=== PATIENT | female | born 1995 | race Caucasian/White ===

== ENCOUNTER 2016-12-04 20:47 | Emergency (ER) | payer OTHER ==
[2016-12-04 22:56] LABS: MEAN CORPUSCULAR HEMOGLOBIN 29.8 pg (27.0-33.0); RED CELL DISTRIBUTION WIDTH 12.3 % (11.5-14.5); WHITE BLOOD COUNT 12.5 K/mm3 (4.0-10.0)
--- NOTE | 2016-12-05 01:10 | EDDOCDS ---
Physician Documentation [facility] Name: Mamie Ken Age: 21 yrs Sex: Female : 1995 Arrival Date: 12/04/2016 Time: 20:47 Bed TR8 Private MD: MOCamryn MARIN Disposition: 12/05/16 00:09 Discharged to Home/Self Care. Impression: Abnormal uterine and vaginal bleeding, unspecified - early . - Condition is Stable. - Discharge Instructions: Threatened Miscarriage. - Medication Reconciliation form. - Follow up: Emergency Department; When: As needed. Follow up: Melissa Fernando MD; When: 1 week; Reason: Wound/Symptom Recheck, Recheck today's complaints, Worsening of conditions, Continuance of care. - Problem is new. - Symptoms are resolved. Historical: - Allergies: Peanut (Anaphylaxis); - Home Meds: 1. none - PSHx: none; - Social history: Smoking status: Patient states was never smoker of tobacco. No barriers to communication noted, The patient speaks fluent Ethiopian. - Family history: Not pertinent. - : The pt / caregiver states he / she is not on anticoagulants. Home medication list is obtained from the patient. - Exposure Risk Screening:: None identified. 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 9 in. (175.26 cm); Pain 2/10; 12/05 00:23 BP 114 / 68; Pulse 77; Resp 16; Temp 98.5(T); Pulse Ox 99% on R/A; cz 12/04 20:48 Body Mass Index 18.46 (56.70 kg, 175.26 cm) sew MDM: 12/04 22:35 Undress patient appropriately for examination ordered. cc10 22:36 Complete Blood Count Ordered. EDMS 22:36 Hcg, Serum Quantitative Ordered. EDMS 22:36 Type & Screen Ordered. EDMS 22:36 US 1st trimester Ordered. EDMS 23:59 Complete Blood Count Reviewed. cc10 23:59 Hcg, Serum Quantitative Reviewed. cc10 23:59 Type & Screen Reviewed. cc10 12/05 00:04 Financial registration complete. [facility] Signatures: Dispatcher [employer] Sonia Johnson, RN RN Quincy Garcia RN RN Alexander Paiz PA-C JUDITH Samia Key [facility] The chart was reviewed and I authenticate all verbal orders and agree with the evaluation and treatment provided.Corrections: (The following items were deleted from the chart) 00:11 12/04 22:36 URINALYSIS+LAB ordered. EDMS EDMS 12/05 00:11 12/04 22:36 URINE CULTURE+CORY ordered. EDUT EDMS MTDD
--- NOTE | 2016-12-05 01:10 | EDDOCDS ---
Nurse's Notes [facility] Name: Mamie Ken Age: 21 yrs Sex: Female : 1995 Arrival Date: 12/04/2016 Time: 20:47 Bed TR8 Private [facility] Diagnosis: Abnormal uterine and vaginal bleeding, unspecified-early Presentation: 12/04 20:54 Presenting complaint: Patient states: 6 weeks and started spotting 2 days ago, mcp today started with heavy bleeding, pain on right side. Risk factors: The patient reports no loss of conciousness prior to arrival. This patient has not had a hysterectomy. This patient has not begun menopause. Adult Sepsis Screening: The patient does not have new or worsening altered mentation. Patient's respiratory rate is less than 22. Systolic blood pressure is greater than 100. Patient has a qSOFA score of 0- Negative Sepsis Screen. Suicide/Homicide risk assessment- the patient denies having any suicidal and/or homicidal ideations and does not present with any other emotional, behavioral or mental health complaints. 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 Transition of care: patient was not received from another setting of care. 20:54 Acuity: WARREN Level 3 [facility] 20:54 Method Of Arrival: Walkin/Carried/Asstd [facility] Triage Assessment: 20:57 General: Appears in no apparent distress, Behavior is cooperative. Pain: Location: mcp right lower quadrant Pain currently is 2 out of 10 on a pain scale. HIV screening NA for this visit Offered previously. Neurological: No deficits noted. Respiratory: Airway is patent Respiratory effort is even, unlabored. : Reports vaginal bleeding that is heavy flow. Derm: Skin is pink, warm & dry. 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 none - PSHx: none; - Social history: Smoking status: Patient states was never smoker of tobacco. No barriers to communication noted, The patient speaks fluent Setswana. - Family history: Not pertinent. - : The pt / caregiver states he / she is not on anticoagulants. Home medication list is obtained from the patient. - Exposure Risk Screening:: None identified. Screenin/07 01:08 Screening information is obtained from the patient. Fall risk: No risks identified. cz Assistance ADL's: requires no assistance with activities of daily living. Abuse/DV Screen: The patient / caregiver reports he/she is: not in a situation that causes fear, pain or injury. Nutritional screening: No deficits noted. home support is adequate. Assessment: 01:08 Reassessment: Patient appears in no apparent distress at this time. Patient states cz symptoms have improved. Vital Signs: 12/04 20:48 BP 147 / 77; Pulse 97; Resp 16; Temp 98.5(O); Pulse Ox 100% on R/A; Weight 56.7 kg; sew Height 5 ft. 9 in. (175.26 cm); Pain 01/08; 12/05 00:23 BP 114 / 68; Pulse 77; Resp 16; Temp 98.5(T); Pulse Ox 99% on R/A; cz 12/04 20:48 Body Mass Index 18.46 (56.70 kg, 175.26 cm) [facility] [place]: 12/04 20:48 Log In Time: December 04, 2016 at 20:48. [facility] [place] Course: 20:48 Patient visited by Penny Lopez. sew 20:48 [facility] Phys[facility]. sew 20:48 Patient moved to Waiting sew 20:49 Patient visited by Penny Lopez. sew 20:49 Patient moved to Pre RCE sew 20:55 Triage Initiated mcp 20:57 Patient visited by Sonia Humphrey RN. [facility] 22:26 Alexander Loomis PA-C [facility]. cc10 22:26 Stanley Mendoza DO is Attending Physician. cc10 22:26 Patient moved to Triage 2 jb5 22:31 Patient visited by Alexander Loomis PA-C. cc10 22:31 Patient visited by Alexander Loomis PA-C. cc10 22:49 Patient moved to TR2 jb5 22:49 Complete Blood Count Sent. jb5 22:49 Hcg, Serum Quantitative Sent. jb5 22:49 Type & Screen Sent. jb5 12/05 00:06 Patient moved to PR2 / 26 mcp 00:08 Melissa Fernando MD is Referral Physician. cc10 00:23 Patient moved to TR8 cz 01:08 The patient / caregiver is instructed regarding the plan of care and ED course. cz 01:08 No IV's were initiated during this patient's visit. No procedures done that require cz assistance. Order Results: Lab Order: Complete Blood Count; [facility] 12/04/16 22:44 Test: WHITE BLOOD COUNT; Value: 12.5; Range: 4.0-10.0; Abnormal: Above high normal; Units: K/mm3; Status: F Test: RED BLOOD COUNT; Value: 4.38; Range: 4.00-5.40; Units: M/mm3; Status: F Test: HEMOGLOBIN; Value: 13.0; Range: 12.0-16.0; Units: g/dl; Status: F Test: HEMATOCRIT; Value: 37.2; Range: 36.0-47.0; Units: %; Status: F Test: MEAN CORPUSCULAR VOLUME; Value: 85.0; Range: 80.0-96.0; Units: fl; Status: F Test: MEAN CORPUSCULAR HEMOGLOBIN; Value: 29.8; Range: 27.0-33.0; Units: pg; Status: F Test: MEAN CORPUSCULAR HGB CONC; Value: 35.0; Range: 32.0-36.5; Units: g/dl; Status: F Test: RED CELL DISTRIBUTION WIDTH; Value: 12.3; Range: 11.5-14.5; Units: %; Status: F Test: PLATELET COUNT, AUTOMATED; Value: 166; Range: 150-450; Units: k/mm3; Status: F Lab Order: Hcg, Serum Quantitative; [facility] 12/04/16 22:44 Test: HCG, SERUM QUANTITATIVE; Value: [id number]; Units: MIU/ML; Status: F Test Note: ; GESTATIONAL AGE APPROXIMATE HCG RANGE (MIU/ML) 0.2-1 WEEK 5-50 1-2 WEEKS 50-500 2-3 WEEKS 100-5,000 3-4 WEEKS 500-10,000 4-5 WEEKS 1,000-50,000 5-6 WEEKS 10,000-100,000 6-8 WEEKS 15,000-200,000 2-3 MONTHS 10,000-100,000 NON FEMALES LESS THAN 3.0 Patient samples may contain human heterophilic antibodies that could react with immunoassays to give falsely elevated or depressed results. This assay has been designed to minimize interference from heterophilic antibodies. Elevated hCG levels have also been associated with trophoblastic disease and nontrophoblastic neoplasms. The possibility of having these diseases should be considered before a diagnosis of is made. This test is not intended for use as a surrogate marker for aiding in the diagnosis or monitoring the treatment of cancer patients. [employer] methodology. Lab Order: Type & Screen; SPEC'M 12/04/16 22:44 Test: BLOOD TYPE; Value: O POS; Status: F Test: AB SCREEN (INDIRECT DEBORAH)GEL; Value: NEGATIVE; Status: F Outcome: 00:09 Discharge ordered by Provider. cc10 01:08 Discharge Assessment: Patient awake, alert and oriented x 3. No cognitive and/or cz functional deficits noted. Patient verbalized understanding of disposition instructions. patient administered narcotics - no. The following High Risk Discharge criteria are identified: None. Discharged to home ambulatory, with significant other. Condition: stable. Discharge instructions given to patient, Instructed on discharge instructions, follow up and referral plans. Demonstrated understanding of instructions, Pt was receptive of discharge instructions/ teaching. Ultrasound Study completed. Property :Personal belongings accompany Pt. 01:09 Patient left the ED. cz Signatures: Sonia Hupmhrey, RN Quincy Cain mcp, RN RN cz Baker, Janet, SARAHI CARAMEL CANDY MAKER jorge [email or web address] Penny Lopez Colin, PA-C PA-C cc10 [email or web address]
--- NOTE | 2016-12-05 01:20 | REPUSA ---
CLINICAL HISTORY: Bleeding TECHNIQUE: Transabdominal ultrasound of the pelvis was performed. FINDINGS: A pole is identified with crown-rump length of 0.3 cm, which corresponds to a gestational age o f 6 weeks and 0 days. A yolk sac is noted. heart motion is demonstrated, with a rate of 86 beats per minute. VALENCIA is estimated at 07/30/17 Right ovarian corpus luteum cyst is seen. The ovaries are otherwise unremarkable. There is no adnexal mass or pelvic fluid collection. IMPRESSION: Single live IUP dated at 6 weeks 0 days.
--- NOTE | 2016-12-08 10:21 | EDDOCDS ---
Physician Documentation [facility] Name: Mamie Ken Age: 21 yrs Sex: Female : 1995 Arrival Date: 12/04/2016 Time: 20:47 Bed TR8 Private MD: DCCamryn MARIN Disposition: 12/05/16 00:09 Discharged to Home/Self Care. Impression: Abnormal uterine and vaginal bleeding, unspecified - early . - Condition is Stable. - Discharge Instructions: Threatened Miscarriage. - Medication Reconciliation form. - Follow up: Emergency Department; When: As needed. Follow up: Melissa Fernando MD; When: 1 week; Reason: Wound/Symptom Recheck, Recheck today's complaints, Worsening of conditions, Continuance of care. - Problem is new. - Symptoms are resolved. Historical: - Allergies: Peanut (Anaphylaxis); - Home Meds: 1. none - PSHx: none; - Social history: Smoking status: Patient states was never smoker of tobacco. No barriers to communication noted, The patient speaks fluent Filipino. - Family history: Not pertinent. - : The pt / caregiver states he / she is not on anticoagulants. Home medication list is obtained from the patient. - Exposure Risk Screening:: None identified. 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 9 in. (175.26 cm); Pain 2/10; 12/05 00:23 BP 114 / 68; Pulse 77; Resp 16; Temp 98.5(T); Pulse Ox 99% on R/A; cz 12/04 20:48 Body Mass Index 18.46 (56.70 kg, 175.26 cm) sew MDM: 12/04 22:35 Undress patient appropriately for examination ordered. cc10 22:36 Complete Blood Count Ordered. EDMS 22:36 Hcg, Serum Quantitative Ordered. EDMS 22:36 Type & Screen Ordered. EDMS 22:36 US 1st trimester Ordered. EDMS 23:59 Complete Blood Count Reviewed. cc10 23:59 Hcg, Serum Quantitative Reviewed. cc10 23:59 Type & Screen Reviewed. cc10 12/05 00:04 Financial registration complete. [facility] 02:55 [facility] Payment Agreement was scanned into [employer] and attached to record. [facility] 08: T-Sheet-- Draft Copy was scanned into [employer] and attached to record. [facility] Signatures: Dispatcher [employer] EDMI Sonia Humphrey RN RN mcp Zecher, Calvin, RN RN cz Coniski, Colin, PA-C PA-C Samia Mcmillan [facility] Penny Linn [facility] The chart was reviewed and I authenticate all verbal orders and agree with the evaluation and treatment provided.Corrections: (The following items were deleted from the chart) 00:11 12/04 22:36 URINALYSIS+LAB ordered. EDMS EDMS 12/05 00:11 12/04 22:36 URINE CULTURE+CORY ordered. EDMI EDMS Attachments: 12/05 02:55 [facility] Payment Agreement [facility] 08: T-Sheet-- Draft Copy [facility] Chart Complete MTDD
--- NOTE | 2016-12-08 10:21 | EDDOCDS ---
Nurse's Notes [facility] Name: Mamie Ken Age: 21 yrs Sex: Female : 1995 Arrival Date: 12/04/2016 Time: 20:47 Bed TR8 Private [facility] Diagnosis: Abnormal uterine and vaginal bleeding, unspecified-early Presentation: 12/04 20:54 Presenting complaint: Patient states: 6 weeks and started spotting 2 days ago, mcp today started with heavy bleeding, pain on right side. Risk factors: The patient reports no loss of conciousness prior to arrival. This patient has not had a hysterectomy. This patient has not begun menopause. Adult Sepsis Screening: The patient does not have new or worsening altered mentation. Patient's respiratory rate is less than 22. Systolic blood pressure is greater than 100. Patient has a qSOFA score of 0- Negative Sepsis Screen. Suicide/Homicide risk assessment- the patient denies having any suicidal and/or homicidal ideations and does not present with any other emotional, behavioral or mental health complaints. 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 Transition of care: patient was not received from another setting of care. 20:54 Acuity: WARREN Level 3 [facility] 20:54 Method Of Arrival: Walkin/Carried/Asstd [facility] Triage Assessment: 20:57 General: Appears in no apparent distress, Behavior is cooperative. Pain: Location: mcp right lower quadrant Pain currently is 2 out of 10 on a pain scale. HIV screening NA for this visit Offered previously. Neurological: No deficits noted. Respiratory: Airway is patent Respiratory effort is even, unlabored. : Reports vaginal bleeding that is heavy flow. Derm: Skin is pink, warm & dry. 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 none - PSHx: none; - Social history: Smoking status: Patient states was never smoker of tobacco. No barriers to communication noted, The patient speaks fluent Estonian. - Family history: Not pertinent. - : The pt / caregiver states he / she is not on anticoagulants. Home medication list is obtained from the patient. - Exposure Risk Screening:: None identified. Screenin/07 01:08 Screening information is obtained from the patient. Fall risk: No risks identified. cz Assistance ADL's: requires no assistance with activities of daily living. Abuse/DV Screen: The patient / caregiver reports he/she is: not in a situation that causes fear, pain or injury. Nutritional screening: No deficits noted. home support is adequate. Assessment: 01:08 Reassessment: Patient appears in no apparent distress at this time. Patient states cz symptoms have improved. Vital Signs: 12/04 20:48 BP 147 / 77; Pulse 97; Resp 16; Temp 98.5(O); Pulse Ox 100% on R/A; Weight 56.7 kg; sew Height 5 ft. 9 in. (175.26 cm); Pain 01/08; 12/05 00:23 BP 114 / 68; Pulse 77; Resp 16; Temp 98.5(T); Pulse Ox 99% on R/A; cz 12/04 20:48 Body Mass Index 18.46 (56.70 kg, 175.26 cm) [facility] [place]als: 12/04 20:48 Log In Time: December 04, 2016 at 20:48. [facility] [place] ED Course: 20:48 Patient visited by Penny Lopez. sew 20:48 [facility]. sew 20:48 Patient moved to Waiting sew 20:49 Patient visited by Penny Lopez. sew 20:49 Patient moved to Pre RCE sew 20:55 Triage Initiated mcp 20:57 Patient visited by Sonia Humphrey RN. [facility] 22:26 Alexander Loomis PA-C [facility]. cc10 22:26 Stanley Mendoza DO is Attending Physician. cc10 22:26 Patient moved to Triage 2 jb5 22:31 Patient visited by Alexander Loomis PA-C. cc10 22:31 Patient visited by Alexander Loomis PA-C. cc10 22:49 Patient moved to TR2 jb5 22:49 Complete Blood Count Sent. jb5 22:49 Hcg, Serum Quantitative Sent. jb5 22:49 Type & Screen Sent. jb5 12/05 00:06 Patient moved to PR2 / 26 mcp 00:08 Melissa Fernando MD is Referral Physician. cc10 00:23 Patient moved to TR8 cz 01:08 The patient / caregiver is instructed regarding the plan of care and ED course. cz 01:08 No IV's were initiated during this patient's visit. No procedures done that require cz assistance. 01:28 US 1st trimester Returned. EDRI 02:55 [facility] Payment Agreement was scanned into [email or web address] and attached to record. [facility] 08:09 T-Sheet-- Draft Copy was scanned into [email or web address] and attached to record. [facility] Order Results: Lab Order: Complete Blood Count; [facility] 12/04/16 22:44 Test: WHITE BLOOD COUNT; Value: 12.5; Range: 4.0-10.0; Abnormal: Above high normal; Units: K/mm3; Status: F Test: RED BLOOD COUNT; Value: 4.38; Range: 4.00-5.40; Units: M/mm3; Status: F Test: HEMOGLOBIN; Value: 13.0; Range: 12.0-16.0; Units: g/dl; Status: F Test: HEMATOCRIT; Value: 37.2; Range: 36.0-47.0; Units: %; Status: F Test: MEAN CORPUSCULAR VOLUME; Value: 85.0; Range: 80.0-96.0; Units: fl; Status: F Test: MEAN CORPUSCULAR HEMOGLOBIN; Value: 29.8; Range: 27.0-33.0; Units: pg; Status: F Test: MEAN CORPUSCULAR HGB CONC; Value: 35.0; Range: 32.0-36.5; Units: g/dl; Status: F Test: RED CELL DISTRIBUTION WIDTH; Value: 12.3; Range: 11.5-14.5; Units: %; Status: F Test: PLATELET COUNT, AUTOMATED; Value: 166; Range: 150-450; Units: k/mm3; Status: F Lab Order: Hcg, Serum Quantitative; [facility] 12/04/16 22:44 Test: HCG, SERUM QUANTITATIVE; Value: [id number]; Units: MIU/ML; Status: F Test Note: ; GESTATIONAL AGE APPROXIMATE HCG RANGE (MIU/ML) 0.2-1 WEEK 5-50 1-2 WEEKS 50-500 2-3 WEEKS 100-5,000 3-4 WEEKS 500-10,000 4-5 WEEKS 1,000-50,000 5-6 WEEKS 10,000-100,000 6-8 WEEKS 15,000-200,000 2-3 MONTHS 10,000-100,000 NON FEMALES LESS THAN 3.0 Patient samples may contain human heterophilic antibodies that could react with immunoassays to give falsely elevated or depressed results. This assay has been designed to minimize interference from heterophilic antibodies. Elevated hCG levels have also been associated with trophoblastic disease and nontrophoblastic neoplasms. The possibility of having these diseases should be considered before a diagnosis of is made. This test is not intended for use as a surrogate marker for aiding in the diagnosis or monitoring the treatment of cancer patients. [employer] methodology. Lab Order: Type & Screen; SPEC'M 12/04/16 22:44 Test: BLOOD TYPE; Value: O POS; Status: F Test: AB SCREEN (INDIRECT DEBORAH)GEL; Value: NEGATIVE; Status: F Radiology Order: US 1st trimester Test: US 1st trimester REASON FOR EXAMINATION: Bleeding; ; CLINICAL HISTORY: Bleeding; TECHNIQUE: Transabdominal ultrasound of the pelvis was performed.; FINDINGS:; A pole is identified with crown-rump length of 0.3 cm, which corresponds to a gestational age o; f 6 weeks and 0 days. A yolk sac is noted.; heart motion is demonstrated, with a rate of 86 beats per minute.; VALENCIA is estimated at 07/30/17; Right ovarian corpus luteum cyst is seen. The ovaries are otherwise unremarkable.; There is no adnexal mass or pelvic fluid collection.; IMPRESSION: Single live IUP dated at 6 weeks 0 days.; ; Outcome: 00:09 Discharge ordered by Provider. cc10 01:08 Discharge Assessment: Patient awake, alert and oriented x 3. No cognitive and/or cz functional deficits noted. Patient verbalized understanding of disposition instructions. patient administered narcotics - no. The following High Risk Discharge criteria are identified: None. Discharged to home ambulatory, with significant other. Condition: stable. Discharge instructions given to patient, Instructed on discharge instructions, follow up and referral plans. Demonstrated understanding of instructions, Pt was receptive of discharge instructions/ teaching. Ultrasound Study completed. Property :Personal belongings accompany Pt. 01:09 Patient left the ED. cz Signatures: Dispatcher [employer] EDSonia Méndez, RN Quincy Cain mcp, RN RN cz Baker, Janet, PCA FIVE PIECE EXPANSION MAKER HAND jb5 John, Alexander Hernandez, PA-C PA-C cc10 Steven, Samia Linn, Penny simon Chart Complete MTDD
--- NOTE | 2016-12-08 10:21 | EDDOCDS ---
Physician Documentation [facility] Name: Mamie Ken Age: 21 yrs Sex: Female : 1995 Arrival Date: 12/04/2016 Time: 20:47 Bed TR8 Private MD: SCCamryn MARIN Disposition: 12/05/16 00:09 Discharged to Home/Self Care. Impression: Abnormal uterine and vaginal bleeding, unspecified - early . - Condition is Stable. - Discharge Instructions: Threatened Miscarriage. - Medication Reconciliation form. - Follow up: Emergency Department; When: As needed. Follow up: Melissa Fernando MD; When: 1 week; Reason: Wound/Symptom Recheck, Recheck today's complaints, Worsening of conditions, Continuance of care. - Problem is new. - Symptoms are resolved. Historical: - Allergies: Peanut (Anaphylaxis); - Home Meds: 1. none - PSHx: none; - Social history: Smoking status: Patient states was never smoker of tobacco. No barriers to communication noted, The patient speaks fluent British. - Family history: Not pertinent. - : The pt / caregiver states he / she is not on anticoagulants. Home medication list is obtained from the patient. - Exposure Risk Screening:: None identified. 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 9 in. (175.26 cm); Pain 2/10; 12/05 00:23 BP 114 / 68; Pulse 77; Resp 16; Temp 98.5(T); Pulse Ox 99% on R/A; cz 12/04 20:48 Body Mass Index 18.46 (56.70 kg, 175.26 cm) sew MDM: 12/04 22:35 Undress patient appropriately for examination ordered. cc10 22:36 Complete Blood Count Ordered. EDMS 22:36 Hcg, Serum Quantitative Ordered. EDMS 22:36 Type & Screen Ordered. EDMS 22:36 US 1st trimester Ordered. EDMS 23:59 Complete Blood Count Reviewed. cc10 23:59 Hcg, Serum Quantitative Reviewed. cc10 23:59 Type & Screen Reviewed. cc10 12/05 00:04 Financial registration complete. [facility] 02:55 [facility] Payment Agreement was scanned into [employer] and attached to record. [facility] 08: T-Sheet-- Draft Copy was scanned into [employer] and attached to record. [facility] Signatures: Dispatcher [employer] EDAR Sonia Humphrey RN RN mcp Zecher, Calvin, RN RN cz Coniski, Colin, PA-C PA-C Samia Mcmillan [facility] Penny Linn [facility] The chart was reviewed and I authenticate all verbal orders and agree with the evaluation and treatment provided.Corrections: (The following items were deleted from the chart) 00:11 12/04 22:36 URINALYSIS+LAB ordered. EDMS EDMS 12/05 00:11 12/04 22:36 URINE CULTURE+CORY ordered. EDAR EDMS Attachments: 12/05 02:55 [facility] Payment Agreement [facility] 08: T-Sheet-- Draft Copy [facility] Chart Complete MTDD
== END 2016-12-05 01:09 | disposition home or self-care (01) ==
LOC: M ED 20:47
DX: O20.0 Threatened abortion (principal); Z3A.01 Less than 8 weeks gestation of pregnancy; Z91.010 Allergy to peanuts

== ENCOUNTER 2017-01-17 13:05 | Emergency (ER) | payer OTHER ==
--- NOTE | 2017-01-17 15:06 | EDDOCDS ---
Nurse's Notes [facility] Name: Mamie Ken Age: 21 yrs Sex: Female : 1995 Arrival Date: 01/17/2017 Time: 13:05 Bed Triage 3 Private MD: MSCamryn MARIN Diagnosis: Nausea and vomiting Presentation: 01/17 13:09 Presenting complaint: Patient states: nausea nd vomiting since Wednesday. denies pain. 12 srm weeks . no vaginal bleeding. Adult Sepsis Screening: The patient does not have new or worsening altered mentation. Patient's respiratory rate is less than 22. Systolic blood pressure is greater than 100. Patient has a qSOFA score of 0- Negative Sepsis Screen. Suicide/Homicide risk assessment- the patient denies having any suicidal and/or homicidal ideations and does not present with any other emotional, behavioral or mental health complaints. 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 Transition of care: patient was not received from another setting of care. 13:09 Acuity: WARREN Level 3 srm 13:09 Method Of Arrival: Walkin/Carried/Asstd srm Triage Assessment: 13:12 General: Appears in no apparent distress, Behavior is appropriate for age, cooperative. srm Pain: Denies pain. HIV screening NA for this visit Offered previously. 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 vitamin b6 and unisom three times a day 2. Zofran (as hydrochloride) 4 mg Oral tab (Last dose: 01/17/2017 07:30) 3. Vitamin Oral once daily - PMHx: none; - PSHx: none; - Social history: Smoking status: Patient states was never smoker of tobacco. No barriers to communication noted, The patient speaks fluent Ecuadorean, Speaks appropriately for age. - Family history: Not pertinent. - : The pt / caregiver states he / she is not on anticoagulants. Home medication list is obtained from the patient. - Exposure Risk Screening:: None identified. Screenin:03 Screening information is obtained from the patient. Fall risk: No risks identified. bcj Assistance ADL's: requires no assistance with activities of daily living. Abuse/DV Screen: The patient / caregiver reports he/she is: not in a situation that causes fear, pain or injury. Nutritional screening: No deficits noted. Advance Directives: Currently, there is no health care proxy. home support is adequate. Assessment: 15:03 GI: Abdomen is flat, non- distended Bowel sounds present X 4 quads. Abd is soft and non bcj tender X 4 quads. Vital Signs: 13:07 BP 120 / 72; Pulse 81; Resp 18 S; Temp 98.2(O); Pulse Ox 97% on R/A; Weight 56.7 kg gr2 (R); Height 5 ft. 9 in. (175.26 cm) (R); Pain 4/10; 13:07 Body Mass Index 18.46 (56.70 kg, 175.26 cm) gr2 Vitals: 13:07 Log In Time: January 17, 2017 at 13:07. gr2 ED Course: 13:07 Patient visited by Tish Brown. gr2 13:07 [facility] is Private Physician. gr2 13:07 Patient moved to Waiting gr2 13:09 Patient visited by Tish Brown. gr2 13:09 Patient moved to Pre RCE gr2 13:10 Triage Initiated srm 14:44 Patient moved to Triage 3 cjh 14:45 [facility] btw 14:45 Stephanie Antony MD is Attending Physician. btw 14:45 Patient visited by Truong Finney PA. btw 14:48 [facility] is Referral Physician. btw 15:03 No apparent distress. Resting quietly. Awaiting disposition. bcj 15:03 The patient / caregiver is instructed regarding the plan of care and ED course. bcj 15:03 No IV's were initiated during this patient's visit. No procedures done that require bcj assistance. 15:05 Patient visited by Nathaniel Aguillon RN. bcj Order Results: There are currently no results for this order. Outcome: 14:48 Discharge ordered by Provider. btw 15:03 Discharge Assessment: patient administered narcotics - no. The following High Risk bcj Discharge criteria are identified: None. Discharged to home ambulatory, with family. Condition: stable. No special radiology studies were completed. Property :Personal belongings accompany Pt. 15:05 Patient left the ED. [facility] Signatures: Nathaniel Aguillon RN RN Bri Cordova RN RN Truong Mohan PA PA btw Hafner, JaneRN RN [facility] Tish Brown gr2 MTDD
--- NOTE | 2017-01-17 15:06 | EDDOCDS ---
Physician Documentation [facility] Name: Mamie Ken Age: 21 yrs Sex: Female : 1995 Arrival Date: 01/17/2017 Time: 13:05 Bed Triage 3 Private MD: [facility] [place] Disposition: 01/17/17 14:48 Discharged to Home/Self Care. Impression: Nausea and vomiting. - Condition is Stable. - Discharge Instructions: Nausea and Vomiting, [id number]. - Prescriptions for ZOFRAN ODT 4 mg - dissolve 1 tablet by ORAL route 4 times per day As needed do not chew, do not swallow whole; 10 tablet. - Medication Reconciliation, Local Pharmacy Hours form. - Follow up: [facility]; When: Tomorrow; Reason: Further diagnostic work-up, Recheck today's complaints, Continuance of care. - Problem is new. - Symptoms are unchanged. Historical: - Allergies: Peanut (Anaphylaxis); - Home Meds: 1. vitamin b6 and unisom three times a day 2. Zofran (as hydrochloride) 4 mg Oral tab (Last dose: 01/17/2017 07:30) 3. Vitamin Oral once daily - PMHx: none; - PSHx: none; - Social history: Smoking status: Patient states was never smoker of tobacco. No barriers to communication noted, The patient speaks fluent Dominican, Speaks appropriately for age. - Family history: Not pertinent. - : The pt / caregiver states he / she is not on anticoagulants. Home medication list is obtained from the patient. - Exposure Risk Screening:: None identified. 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 9 in. (175.26 cm) (R); Pain 4/10; 13:07 Body Mass Index 18.46 (56.70 kg, 175.26 cm) gr2 MDM: 15:03 Financial registration complete. lg Signatures: Nathaniel Aguillon, RN RN Bri Cordova, RN RN Yeni Veloz, Scooter Reg Truong Tsai PA PA btw MTDD
--- NOTE | 2017-01-19 16:06 | EDDOCDS ---
Physician Documentation [facility] Name: Mamie Ken Age: 21 yrs Sex: Female : 1995 Arrival Date: 01/17/2017 Time: 13:05 Bed Triage 3 Private MD: [facility] [place] Disposition: 01/17/17 14:48 Discharged to Home/Self Care. Impression: Nausea and vomiting. - Condition is Stable. - Discharge Instructions: Nausea and Vomiting, [id number]. - Prescriptions for ZOFRAN ODT 4 mg - dissolve 1 tablet by ORAL route 4 times per day As needed do not chew, do not swallow whole; 10 tablet. - Medication Reconciliation, Local Pharmacy Hours form. - Follow up: [facility] [place]; When: Tomorrow; Reason: Further diagnostic work-up, Recheck today's complaints, Continuance of care. - Problem is new. - Symptoms are unchanged. Historical: - Allergies: Peanut (Anaphylaxis); - Home Meds: 1. vitamin b6 and unisom three times a day 2. Zofran (as hydrochloride) 4 mg Oral tab (Last dose: 01/17/2017 07:30) 3. Vitamin Oral once daily - PMHx: none; - PSHx: none; - Social history: Smoking status: Patient states was never smoker of tobacco. No barriers to communication noted, The patient speaks fluent Greek, Speaks appropriately for age. - Family history: Not pertinent. - : The pt / caregiver states he / she is not on anticoagulants. Home medication list is obtained from the patient. - Exposure Risk Screening:: None identified. 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 9 in. (175.26 cm) (R); Pain 4/10; 13:07 Body Mass Index 18.46 (56.70 kg, 175.26 cm) gr2 MDM: 15:03 Financial registration complete. lg 16:04 REPLACED BY [facility] Payment Agreement was scanned into [employer] and attached to record. lg 22:03 T-Sheet-- Draft Copy was scanned into [employer] and attached to record. klr Signatures: Nathaniel Aguillon RN RN bcj Michelson, Staci, RN RN srm Ganter, LoriLee, Scooter Reg lg Truong Finney PA PA btw Redder, Kathie klflores The chart was reviewed and I authenticate all verbal orders and agree with the evaluation and treatment provided.Attachments: 16:04 [facility] [place] Agreement lg 22:03 T-Sheet-- Draft Copy klr Chart Complete MTDD
--- NOTE | 2017-01-19 16:06 | EDDOCDS ---
Physician Documentation [facility] Name: Mamie Ken Age: 21 yrs Sex: Female : 1995 Arrival Date: 01/17/2017 Time: 13:05 Bed Triage 3 Private MD: [facility] [place] Disposition: 01/17/17 14:48 Discharged to Home/Self Care. Impression: Nausea and vomiting. - Condition is Stable. - Discharge Instructions: Nausea and Vomiting, [id number]. - Prescriptions for ZOFRAN ODT 4 mg - dissolve 1 tablet by ORAL route 4 times per day As needed do not chew, do not swallow whole; 10 tablet. - Medication Reconciliation, Local Pharmacy Hours form. - Follow up: [facility] [place]; When: Tomorrow; Reason: Further diagnostic work-up, Recheck today's complaints, Continuance of care. - Problem is new. - Symptoms are unchanged. Historical: - Allergies: Peanut (Anaphylaxis); - Home Meds: 1. vitamin b6 and unisom three times a day 2. Zofran (as hydrochloride) 4 mg Oral tab (Last dose: 01/17/2017 07:30) 3. Vitamin Oral once daily - PMHx: none; - PSHx: none; - Social history: Smoking status: Patient states was never smoker of tobacco. No barriers to communication noted, The patient speaks fluent Faroese, Speaks appropriately for age. - Family history: Not pertinent. - : The pt / caregiver states he / she is not on anticoagulants. Home medication list is obtained from the patient. - Exposure Risk Screening:: None identified. 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 9 in. (175.26 cm) (R); Pain 4/10; 13:07 Body Mass Index 18.46 (56.70 kg, 175.26 cm) gr2 MDM: 15:03 Financial registration complete. lg 16:04 [facility] Payment Agreement was scanned into [employer] and attached to record. lg 22:03 T-Sheet-- Draft Copy was scanned into [employer] and attached to record. klr Signatures: Nathaniel Aguillon RN RN bcj Michelson, Staci, RN RN srm Ganter, LoriLee, Scooter Reg lg Truong Finney PA PA btw Redder, Kathie klflores The chart was reviewed and I authenticate all verbal orders and agree with the evaluation and treatment provided.Attachments: 16:04 [facility] Payment Agreement lg 22:03 T-Sheet-- Draft Copy klr Chart Complete MTDD
--- NOTE | 2017-01-19 16:06 | EDDOCDS ---
Nurse's Notes [facility] Name: Mamie Ken Age: 21 yrs Sex: Female : 1995 Arrival Date: 01/17/2017 Time: 13:05 Bed Triage 3 Private MD: SDCamryn MARIN Diagnosis: Nausea and vomiting Presentation: 01/17 13:09 Presenting complaint: Patient states: nausea nd vomiting since Wednesday. denies pain. 12 srm weeks . no vaginal bleeding. Adult Sepsis Screening: The patient does not have new or worsening altered mentation. Patient's respiratory rate is less than 22. Systolic blood pressure is greater than 100. Patient has a qSOFA score of 0- Negative Sepsis Screen. Suicide/Homicide risk assessment- the patient denies having any suicidal and/or homicidal ideations and does not present with any other emotional, behavioral or mental health complaints. 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 Transition of care: patient was not received from another setting of care. 13:09 Acuity: WARREN Level 3 srm 13:09 Method Of Arrival: Walkin/Carried/Asstd srm Triage Assessment: 13:12 General: Appears in no apparent distress, Behavior is appropriate for age, cooperative. srm Pain: Denies pain. HIV screening NA for this visit Offered previously. 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 vitamin b6 and unisom three times a day 2. Zofran (as hydrochloride) 4 mg Oral tab (Last dose: 01/17/2017 07:30) 3. Vitamin Oral once daily - PMHx: none; - PSHx: none; - Social history: Smoking status: Patient states was never smoker of tobacco. No barriers to communication noted, The patient speaks fluent Dominican, Speaks appropriately for age. - Family history: Not pertinent. - : The pt / caregiver states he / she is not on anticoagulants. Home medication list is obtained from the patient. - Exposure Risk Screening:: None identified. Screenin:03 Screening information is obtained from the patient. Fall risk: No risks identified. bcj Assistance ADL's: requires no assistance with activities of daily living. Abuse/DV Screen: The patient / caregiver reports he/she is: not in a situation that causes fear, pain or injury. Nutritional screening: No deficits noted. Advance Directives: Currently, there is no health care proxy. home support is adequate. Assessment: 15:03 GI: Abdomen is flat, non- distended Bowel sounds present X 4 quads. Abd is soft and non bcj tender X 4 quads. Vital Signs: 13:07 BP 120 / 72; Pulse 81; Resp 18 S; Temp 98.2(O); Pulse Ox 97% on R/A; Weight 56.7 kg gr2 (R); Height 5 ft. 9 in. (175.26 cm) (R); Pain 4/10; 13:07 Body Mass Index 18.46 (56.70 kg, 175.26 cm) gr2 Vitals: 13:07 Log In Time: January 17, 2017 at 13:07. gr2 ED Course: 13:07 Patient visited by Tish Brown. gr2 13:07 [facility] is Private Physician. gr2 13:07 Patient moved to Waiting gr2 13:09 Patient visited by Tish Brown. gr2 13:09 Patient moved to Pre RCE gr2 13:10 Triage Initiated srm 14:44 Patient moved to Triage 3 cjh 14:45 [facility]. btw 14:45 Stephanie Antony MD is Attending Physician. btw 14:45 Patient visited by Truong Finney PA. btw 14:48 [facility] is Referral Physician. btw 15:03 No apparent distress. Resting quietly. Awaiting disposition. bcj 15:03 The patient / caregiver is instructed regarding the plan of care and ED course. bcj 15:03 No IV's were initiated during this patient's visit. No procedures done that require bcj assistance. 15:05 Patient visited by Nathaniel Aguillon RN. bcj 16:04 [facility] Payment Agreement was scanned into [employer] and attached to record. lg 22:03 T-Sheet-- Draft Copy was scanned into [employer] and attached to record. klr Order Results: There are currently no results for this order. Outcome: 14:48 Discharge ordered by Provider. btw 15:03 Discharge Assessment: patient administered narcotics - no. The following High Risk [facility] Discharge criteria are identified: None. Discharged to home ambulatory, with family. Condition: stable. No special radiology studies were completed. Property :Personal belongings accompany Pt. 15:05 Patient left the ED. [facility] Signatures: Nathaniel Aguillon, RN RN Bri Cordova RN RN Yeni Veloz, Reg Reg lg Truong Finney PA PA btw Hafner, Jane, RN RN [facility] Tish Brown [facility] Jacqueline Dee Chart Complete MTDD
== END 2017-01-17 15:05 | disposition home or self-care (01) ==
LOC: M ED 13:05
DX: O21.9 Vomiting of pregnancy, unspecified (principal); Z3A.12 12 weeks gestation of pregnancy; Z91.010 Allergy to peanuts

== ENCOUNTER 2017-07-11 13:58 | Outpatient (CLI) | payer OTHER ==
[~2017-07-11] VITALS: Ht 172.7 cm; Wt 68.0 kg
[2017-07-11 14:07] VITALS: BP 112/73
[2017-07-11] MEDS ORDERED: PRENTAB9 PO (15:19)
--- NOTE | 2017-07-11 22:07 | HPE ---
DATE OF ADMISSION: 07/11/2017 This is a 21-year-old 1, para 0, last menstrual period (LMP) 10/22/2016, estimated date of confinement (EDC) 07/29/2017 at 38 weeks of gestation with history of decreased movement over the last 6 hours. Despite the fact of drinking and eating, she has not been able to feel the baby move. Labs show O positive, HIV negative, hepatitis negative, RPR negative, rubella immune. Varicella immune. Pap atypical squamous cells of undetermined significance (ASCUS). Urine was mixed justice. Gonorrhea and chlamydia are negative. 1-hour glucose 115. She has low platelets of 121. No distress. Symphysis fundus height is appropriate, bowel sounds four quadrants, nontender uterus, vertex, occiput anterior (OA) position. Good reactive strip. Minimal amount of contractions are noted. No loss of fluid or vaginal discharge. Urine is 1.010, pH 7, 2+ leukocyte esterase, trace protein. Blood pressure is 112/73, respirations are 18, pulse is 77 and temperature 98.5. In summary, we have a 38+ weeks of gestation with a category one strip. No contractions. Discharge with precautions, has an appointment on Wednesday with her provider. We reinforced kick chart, premature rupture of membranes, labor and bleeding.
== END 2017-07-11 15:01 | disposition home or self-care (01) ==
LOC: M LDO 13:58
PROVIDERS: ATTEND Obstetrics & Gynecology
DX: O36.8130 Decreased fetal movements, third trimester, not applicable or unspecified (principal); Z3A.38 38 weeks gestation of pregnancy

== ENCOUNTER 2017-08-05 06:37 | Inpatient (IN) | payer OTHER ==
[2017-08-05] VITALS (35 sets, daily range): BP systolic 97–144; BP diastolic 56–87
[~2017-08-05] VITALS: Ht 172.7 cm; Wt 71.0 kg
[~2017-08-05 06:37] MED LIST: PRENTAB9 PO
[2017-08-05] MEDS ORDERED: LACTATED RINGER'S 1000 ML IV ONE (08:00)
[2017-08-05] MEDS ORDERED: LR 1,000 ML IV SCH (08:00)
[2017-08-05 08:07] LABS: MEAN CORPUSCULAR HEMOGLOBIN 30.5 pg (27.0-33.0); MEAN CORPUSCULAR HGB CONC 33.6 g/dl (32.0-36.5); MEAN CORPUSCULAR VOLUME 90.7 fl (80.0-96.0); WHITE BLOOD COUNT 13.7 K/mm3 (4.0-10.0)
[2017-08-05] MEDS ORDERED: FENTANYL 2MCG/ML ROPIVACAINE 0.2% IN 0.9% NACL 200ML IVBAG As Ordered ONE (08:32)
[2017-08-05] MEDS: PRENATAL VITAMINS CHEWABLE TABLET PO SCH (09:00)
[2017-08-05] MEDS ORDERED: LACTATED RINGER'S 1000 ML IV PRN (10:00)
[2017-08-05] MEDS ORDERED: EPIDURAL/PCA KEYS XX PRN (10:00)
[2017-08-05] MEDS ORDERED: FENTANYL/ROPIVACAINE/NACL BAG 200 ML EPIDURAL SCH (10:00)
[2017-08-05] MEDS ORDERED: REFRIGERATOR IV KEYS XX PRN (10:00)
[2017-08-05] MEDS ORDERED: EPIDURAL COMMENT XX SCH (10:00)
[2017-08-05] MEDS ORDERED: ONDANSETRON 4MG/2ML VIAL (J2405) IV PRN (10:00)
[2017-08-05] MEDS ORDERED: ePHEDrine SULFATE 25 MG/5 ML(5MG/ML) SYRINGE IV PRN (10:00)
[2017-08-05] MEDS ORDERED: diphenhydrAMINE INJ 50MG/ML VIAL (J1200) IV PRN (10:00)
[2017-08-05] MEDS ORDERED: NALOXONE INJ 0.4 MG/1 ML VIAL (J2310) IV PRN (10:00)
--- NOTE | 2017-08-05 10:57 | HPE ---
DATE OF ADMISSION: 08/05/2017 21-year-old 1, para 0 at 41 weeks gestation in spontaneous labor, 6 cm, bulging membranes and category one strip in active labor. LABORATORIES: O+, HIV negative, hepatitis negative, RPR negative, rubella immune. Varicella by history. Pap shows ASCUS, HPV negative. Urine negative. Gonorrhea and Chlamydia negative. 1-hour glucose 115. Group B streptococcus (GBS) is negative. PHYSICAL EXAMINATION: On examination, distressed female. Symphysis fundus height is 40, vertex, OA, 6 cm of sterile examination, bulging membranes -2, not well applied but having adequate contractions. Her blood pressure is 106/59, respirations are 20, pulse 75, temperature 98.4. Urine is 1005, pH 7, negative. The rest of the examination unremarkable. She is normocephalic, atraumatic. Neck with full range of motion. Pupils equal and reactive to light. Distal pulses symmetric. No evidence of DVT, PE or superficial phlebitis. Chest is clear bilaterally to bases. No wheezes or rhonchi. No costovertebral angle tenderness. Abdomen is soft in between contractions. Four quadrant bowel sounds and appropriate symphysis fundus height. She has no rashes, lesions or pruritus. No arthralgia or myalgia. No complaints of cough, wheezes, shortness of breath or dyspnea on exertion. No chest pain. Not bleeding. Neuro complete. No incontinency, urgency, frequency. No nausea, vomiting, diarrhea or constipation. No diabetic issues. No TELEVISION AGENT issues other than that she had ASCUS on Pap smear, HPV negative, negative for STDs. Past medical and surgical history unremarkable. Family history noncontributory. She does not smoke, drink or abuse drugs. No domestic violence. 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 In summary, we have a 41-week late gestation in active labor. PLAN: Hydrate, epidural, either have an spontaneous rupture of membranes or artificial rupture of membranes, augment as necessary. The patient expressed understanding of the plan.
[2017-08-05] MEDS ORDERED: OXYTOCIN INJ 10 UNITS/ML VIAL (J2590) As Ordered ONE (13:44)
[2017-08-05] MEDS ORDERED: OXYTOCIN 30 UNITS IN 0.9% NaCl 500ML IV BAG (J2590) As Ordered ONE (13:44)
[2017-08-05 15:39] LABS: CORD GAS ABE A -2.9; CORD GAS ABE V -2.8; CORD GAS HCO3 V 22.3 MEQ/L; CORD GAS O2 SAT A 57.2 %; CORD GAS O2 SAT V 56.5 %; CORD GAS PCO2 A 38.5 mmHg; CORD GAS PH A 7.374 UNITS; CORD GAS PH V 7.364 UNITS; CORD GAS PO2 A 25.8 mmHg; CORD GAS PO2 V 25.7 mmHg; CORD GAS SBC A 21.2 MEQ/L; CORD GAS SBC V 21.2 MEQ/L; CORD GAS TCO2 A 23.1 MEQ/L; CORD GAS TCO2 V 23.5 MEQ/L
[2017-08-05] MEDS ORDERED: OXYTOCIN DRIP 30 UNITS in APPROPRIATE DILUENT 1 EA IV SCH (16:12)
[2017-08-05] MEDS ORDERED: MOM 30ML SUSPENSION UDC PO PRN (16:15)
[2017-08-05] MEDS ORDERED: ANUSOL HC CREAM 30GM TOP PRN (16:15)
[2017-08-05] MEDS ORDERED: DOCUSATE SODIUM 100 MG CAP PO PRN (16:15)
[2017-08-05] MEDS ORDERED: RHOGAM 300 MCG (1500 IU) INJ (J2790) IM SCH (16:15)
[2017-08-05] MEDS ORDERED: METHYLERGONOVINE MALEATE 0.2 MG TAB PO PRN (16:15)
[2017-08-05] MEDS ORDERED: OXYTOCIN INJ 10 UNITS/ML VIAL (J2590) IV ONE (16:15)
[2017-08-05] MEDS ORDERED: MEASLES,MUMPS,RUBELLA VACCINE INJ (MMR-II) (90707) SC SCH (16:15)
[2017-08-05] MEDS ORDERED: DIBUCAINE 1% OINTMENT 30GM TOP PRN (16:15)
--- NOTE | 2017-08-05 17:07 | DN ---
DATE: 08/05/2017 This lady is a 1, para 0 who was admitted at 41 weeks of gestation in active labor. She had an epidural in place. She also had an artificial rupture of membranes of clear Liqui. She eventually got fully dilated with epidural in place, spontaneous vaginal delivery of a female infant 8 pounds, 9 ounces, scores of 8 and 9 at one and five minutes respectively, 3884 grams. Placenta was spontaneously thereafter. Three-vessel cord, membranes and tissues intact, quite calcified. Examination of the anterior and posterior lateral chavez and the cervix were normal. She did have a small varicosity on the right vaginal wall which was oversewn with 2-0 Vicryl on a J339. Sphincter was intact. Rectum was intact. Uterus contracted well under massage and Pitocin at 125 mL per hour. The patient and baby tolerating the procedure well.
[2017-08-05] MEDS: IBUPROFEN 800 MG TAB PO PRN (19:49)
[2017-08-06] MEDS: ACETAMINOPHEN 500 MG TAB PO PRN (01:41)
[2017-08-06 05:57] VITALS: BP 109/65
[2017-08-06 07:28] LABS: MEAN CORPUSCULAR HEMOGLOBIN 30.6 pg (27.0-33.0); MEAN CORPUSCULAR HGB CONC 33.4 g/dl (32.0-36.5); MEAN CORPUSCULAR VOLUME 91.6 fl (80.0-96.0); RED CELL DISTRIBUTION WIDTH 13.3 % (11.5-14.5); WHITE BLOOD COUNT 13.8 K/mm3 (4.0-10.0)
[2017-08-06] MEDS: PRENATAL VITAMINS CHEWABLE TABLET PO SCH (08:02)
[2017-08-06] MEDS: IBUPROFEN 800 MG TAB PO PRN ×2 (08:02→19:59)
--- NOTE | 2017-08-06 11:12 | IPN ---
DATE: 08/06/2017 This lady is a 21-year-old 1 now para 1, had a spontaneous vaginal delivery at late term of a female, 8 pounds 9 ounces, 3884 grams, scores of 8 and 9 at 1 and 5 minutes respectively. Arterial pH was 7.37, base excess -2.9, venous pH 7.36, base excess -2.8. Her admitting hemoglobin was 12.6, hematocrit 37.6 and platelets were 116. Vital signs this morning: Her blood pressure is 109/65, respirations 16, pulse 80, temperature 97.7. We discussed phlebitis, cystitis, mastitis, endometritis and cellulitis, diet, exercise pain management, perineal, breast and wound care. The patient is planning on using a Mirena IUD at her 6-week checkup. The rest the examination is unremarkable. Uterus 2 below. Lochia is moderate. Perineum is healing. She had a vulvar blood vessel which was oversewn in the usual fashion, no demonstratable swelling this morning. The patient and baby tolerating procedure well. The patient's expectations are to go home tomorrow.
[2017-08-06 18:02] VITALS: BP 120/74
[2017-08-07] MEDS: ACETAMINOPHEN 500 MG TAB PO PRN (00:12)
[2017-08-07] MEDS: IBUPROFEN 800 MG TAB PO PRN (04:55)
[2017-08-07 06:10] VITALS: BP 116/69
[2017-08-07] MEDS: PRENATAL VITAMINS CHEWABLE TABLET PO SCH (09:33)
[2017-08-07] MEDS ORDERED: TYLE500T78 PO (10:05)
[2017-08-07] MEDS ORDERED: ADVI200T PO (10:06)
== END 2017-08-07 11:40 | disposition home or self-care (01) | DRG 775 ==
LOC: M LDO 06:37 → M LDI 06:42 → M OBS 18:15
PROVIDERS: ADMIT Obstetrics & Gynecology; ATTEND Obstetrics & Gynecology
PROC: 10E0XZZ Delivery of Products of Conception, External Approach (ICD-10-PCS; principal; 2017-08-05)
PROC: 10907ZC Drainage of Amniotic Fluid, Therapeutic from Products of Conception, Via Natural or Artificial Opening (ICD-10-PCS; 2017-08-05)
PROC: 0HQAXZZ Repair Inguinal Skin, External Approach (ICD-10-PCS; 2017-08-05)
DX: O48.0 Post-term pregnancy (principal); Z37.0 Single live birth; Z3A.41 41 weeks gestation of pregnancy; I86.8 Varicose veins of other specified sites; O22.13 Genital varices in pregnancy, third trimester

== ENCOUNTER 2017-09-03 14:15 | Emergency (ER) | payer OTHER ==
[~2017-09-03] VITALS: Ht 175.3 cm; Wt 61.4 kg
[~2017-09-03 14:15] MED LIST changes: +ADVI200T PO; +TYLE500T78 PO
[2017-09-03] MEDS ORDERED: NORA0.35 (14:33)
[2017-09-03] MEDS ORDERED: NS 500 ML IV ONE (16:00)
[2017-09-03 16:20] LABS: CONTROL LINE UCG INT CTR LINE PRESENT
--- NOTE | 2017-09-03 16:42 | REP ---
Pelvic sonography: History: 4 weeks . Heavy vaginal bleeding. Findings: Transabdominal and transvaginal scanning are performed. Uterine dimensions are 8.3 x 4.9 x 6.3 cm. Endometrial echo is 0.7 cm thick. Uterus is retroverted. No focal uterine mass is seen. There is a small amount of fluid in the right side of the cul-de-sac adjacent to the right ovary. Right ovary has normal appearance. Its dimensions are 3.3 x 2.7 x 2.6 cm. Normal Doppler flow is seen in the right ovary with resistive index 0.39. The left ovary could not be visualized either transabdominally or transvaginally. No left adnexal mass or cyst is seen. Impression: Left ovary not visualized, but no left adnexal mass or cyst seen. Normal retroverted uterus. Normal right ovary. Signed by Jc King MD 09/03/2017 04:50 P
[2017-09-03 16:56] LABS: BASO % 0.7 % (0.0-1.0); EOS # 0.2 10^3/uL (0.0-0.50); EOS % 3.4 % (0.0-3.0); IMMATURE GRANULOCYTE % 0.2 % (0-0); LYMPH # 2.6 10^3/uL (1.5-6.5); LYMPH % 43.3 % (24.0-44.0); MEAN CORPUSCULAR HEMOGLOBIN 28.8 pg (27.0-33.0); MEAN CORPUSCULAR HGB CONC 32.4 g/dl (32.0-36.5); MEAN CORPUSCULAR VOLUME 88.8 fl (80.0-96.0); MONO # 0.4 10^3/uL (0.0-0.8); MONO % 6.1 % (0.0-5.0); NEUTROPHILS # 2.8 10^3/uL (1.8-7.7); NEUTROPHILS % 46.3 % (36.0-66.0); PLATELET COUNT, AUTOMATED 206 10^3/uL (150-450); RED CELL DISTRIBUTION WIDTH 13.3 % (11.5-14.5); WHITE BLOOD COUNT 6.1 10^3/uL (4.0-10.0)
[2017-09-03 17:30] LABS: ALBUMIN 3.8 GM/DL (3.2-5.2); ALBUMIN/GLOBULIN RATIO 1.09 (1.00-1.93); ALKALINE PHOSPHATASE 90 U/L (45-117); ALT/SGPT 31 U/L (12-78); ANION GAP 7 MEQ/L (8-16); AST/SGOT 21 U/L (15-37); BILIRUBIN,DIRECT < 0.1 MG/DL (0.0-0.2); BILIRUBIN,TOTAL 0.3 MG/DL (0.2-1.0); BLOOD UREA NITROGEN 7 MG/DL (7-18); CALCIUM LEVEL 8.2 MG/DL (8.5-10.1); CARBON DIOXIDE LEVEL 29 MEQ/L (21-32); CHLORIDE LEVEL 106 MEQ/L (98-107); GLOMERULAR FILTRATION RATE > 60.0 (>60); GLUCOSE, FASTING 94 MG/DL (70-105); SODIUM LEVEL 142 MEQ/L (136-145); TOTAL PROTEIN 7.3 GM/DL (6.4-8.2)
[2017-09-03 17:38] VITALS: BP 137/70
== END 2017-09-03 17:40 | disposition home or self-care (01) ==
LOC: M ED 14:15
DX: N93.9 Abnormal uterine and vaginal bleeding, unspecified (principal); F41.9 Anxiety disorder, unspecified; Z79.899 Other long term (current) drug therapy